=== PATIENT | male | born 1975 | race Caucasian/White ===

== ENCOUNTER 2018-09-19 21:10 | Emergency (ER) | payer OTHER ==
[2018-09-19 21:22] VITALS: TEMP 98.3; BMI 32.1
[2018-09-19 22:00] VITALS: BP 142/84; PULSE 80
--- NOTE | 2018-09-19 22:48 | PDOC ---
History of Present Illness - General Chief Complaint: Blood Pressure Problem Stated Complaint: BP ELEVATED Time Seen by Provider: 09/19/18 21:11 - History of Present Illness Initial Comments: This 43-year-old man with a history of hypertension/ADHD presents with elevated blood pressure readings today. The patient had been seen in urgent care earlier today for symptoms consistent with a sinus infection. At that time, his blood pressure was noted to be elevated (patient believes diastolic was greater than 110 mmHg). He was advised to come to the ER immediately or, alternatively to go home and monitor his blood pressure. Patient chose the latter option; over the next few hours, readings on his home blood pressure monitor was moderately elevated (180/90 range). He decided to come to the emergency room. He denies chest pain/palpitations/shortness of breath/vision changes. He states that he takes his blood pressure medication daily in the morning as prescribed. Today, he also took an [id number] sinus medication containing antihistamine and decongestant. Medications as noted below Past History - Past Medical History Allergies/Adverse Reactions: Allergies Allergy/AdvReac Type Severity Reaction Status Date / Time No Known Allergies Allergy Unverified 09/19/18 21:11 Home Medications: Ambulatory Orders Dextroamphetamine/Amphetamine [Adderall Xr 20 mg Capsule] 20 mg PO DAILY Losartan 50Mg/Hctz 12.5MG [Hyzaar -] 1 tab PO DAILY 09/19/18 COPD: No HTN: Yes Psychiatric Problems: Yes - Suicide/Smoking/Psychosocial Hx Smoking History: Never smoked Review of Systems - Review of Systems Able to Perform ROS?: Yes Comments:: 12 point review of systems is negative except for what is noted in the history of present illness *Physical Exam - Vital Signs Last Vital Signs Temp Pulse Resp BP Pulse Ox 98.3 F 80 16 142/84 99 09/19/18 21:15 09/19/18 22:00 09/19/18 21:15 09/19/18 22:00 09/19/18 22:00 - Physical Exam Comments: GENERAL: Adult male, alert and oriented 3, in no acute distress. Vital signs as noted HEAD: Normal with no signs of trauma. EYES: PERRLA, EOMI, sclera anicteric, conjunctiva clear. ENT: Ears normal, nares patent, oropharynx clear without exudates. Moist mucous membranes. NECK: Normal range of motion, supple without lymphadenopathy, JVD, or masses. LUNGS: Breath sounds equal, clear to auscultation bilaterally. No wheezes, and no crackles. HEART:Regular rate and rhythm, normal S1 and S2 without murmur, rub or gallop. ABDOMEN:.normal bowel sounds No guarding,tenderness or rebound.No masses No distention. EXTREMITIES: Normal range of motion, no edema. No clubbing or cyanosis. No erythema, or tenderness. NEUROLOGICAL: Cranial nerves II through XII grossly intact. Normal speech. No focal neurological deficits. MUSCULOSKELETAL: Back non-tender to palpation, no CVA tenderness SKIN: Warm, Dry, normal turgor, no rashes or lesions noted. Medical Decision Making - Medical Decision Making As noted above, this patient presented after having elevated blood pressure measurements today (both at urgent care where he was seen for acute sinusitis and measurements taken with blood pressure monitor at home) see's. Other than his symptoms consistent with sinusitis, the patient has no acute new symptoms. He has been taking his antihypertensive medication as prescribed but he also apparently had decongestant end sinus medication took earlier today. On presentation here, his initial blood pressure was elevated at 158/109. No specific treatment was given and blood pressure decreased 45 minutes after presentation to 142/84. Since patient continued to be asymptomatic and physical exam was unremarkable, his elevation of blood pressure likely related to the decongestant he took earlier in the day. The patient was discharged with instructions to continue his blood pressure medication as previously prescribed. He should avoid taking any decongestants in the future He should monitor his blood pressure at the same time each day and to return to the ER if he had persistent high readings. Also, he should return if he has chest pressure/pain, shortness of breath, headache, palpitations. He should call his doctor's office in the morning to arrange follow-up within the next 48 hours. *DC/Admit/Observation/Transfer Diagnosis at time of Disposition: Hypertension Qualifiers: Hypertension type: essential hypertension Qualified Code(s): I10 - Essential ( primary) hypertension - Discharge Dispostion Disposition: HOME Condition at time of disposition: Stable - Referrals Referrals: ON STAFF,NOT [Primary Care Provider] - - Patient Instructions Printed Discharge Instructions: DI for High Blood Pressure Additional Instructions: Continue taking your high blood pressure medication as prescribed Avoid decongestants (pills or nasal spray) Return to ER if you have headache/shortness of breath/chest pain or protracted high blood pressure measurements Call your doctor's office tomorrow to arrange follow-up within the next 5-7 days - Post Discharge Activity
== END 2018-09-19 23:19 | disposition home or self-care (01) ==
LOC: FER 21:10
DX: I10 Essential (primary) hypertension (principal); F99 Mental disorder, not otherwise specified; F90.9 Attention-deficit hyperactivity disorder, unspecified type
CPT/HCPCS: 99281-25